=== PATIENT | female | born 1945 | race Caucasian/White ===

== ENCOUNTER → 2022-06-03 13:50 | Outpatient (CLI) | payer MEDICARE, SELFPAY ==
--- NOTE | ~2022-06-03 | MR_ITS ---
EXAMINATION: MR lumbar spine wo/w con DATE: 06/03/2022 14:40 INDICATION: Dorsalgia with low back pain and right leg pain TECHNIQUE: Magnetic resonance imaging (MRI) of the lumbar spine was performed without and with 14 mL Multihance intravenous contrast. Sequences included sagittal T2-weighted FSE, sagittal T2-weighted FS FSE, and sagittal and axial T1-weighted FSE. Postcontrast sequences included axial T2-weighted FSE, sagittal T1-weighted FSE, and axial and sagittal T1-weighted FS FSE. COMPARISON: None FINDINGS: Subtle degree lumbar dextroscoliosis. Sagittal alignment is normal. Vertebral body heights are normal . There is marrow edema and enhancement underlying the the right posterior aspect of the superior end plate of L2 which could represent a developing compression fracture or Schmorl's node. Severe disc he ight loss with fibrofatty degenerative endplate changes at L4-L5. Moderate disc height loss at L1-L2 and L3-L4. Mild disc height loss at L2-L3. Marrow signal is otherwise unremarkable. The conus medulla ris terminates at L1-L2. There is normal signal in the caudal spinal cord. Postoperative change of pr ior right hemilaminotomies at L4-L5 and L5-S1. 6 mm T2 hyperintense nonenhancing right renal cyst. Pa ravertebral soft tissues are otherwise unremarkable. Paravertebral soft tissues are unremarkable. The following disc levels are specifically discussed: T12-L1: Minimal central disc protrusion. There is mild bilateral facet joint osteoarthritis. There is no neural foraminal stenosis. There is no central canal stenosis. L1-L2: Disc is bulging with superimposed annular fissure and small central to right paracentral disc extrusion versus sequestered disc fragment with disc material extending 7 mm cephalad to the level of the inferior endplate of L1. There is mild left and mild to moderate right facet joint osteoarthriti s. There is moderate right and mild to moderate left neural foraminal stenosis. There is mild central canal stenosis. L2-L3: Disc is bulging with annular fissure. There is mild left and mild to moderate right facet join t osteoarthritis. There is hypertrophy of the ligamentum flavum. There is mild bilateral neural warren inal stenosis. There is severe central canal stenosis with no CSF signal surrounding the centrally cl ustered nerve roots. L3-L4: Disc is bulging with superimposed annular fissure and small central disc extrusion with disc m aterial extending up to 6 mm cephalad to the level of the inferior endplate of L3. There is severe bi lateral facet joint osteoarthritis. There is mild to moderate right and moderate left neural foramina l stenosis. There is mild to moderate central canal stenosis. L4-L5: Disc is bulging with annular fissure. There is hypertrophy of the ligamentum flavum with right -sided hemilaminotomy and ligamentum flavum resection. There is moderate to severe bilateral facet nahid int osteoarthritis. There is mild to moderate bilateral neural foraminal stenosis. There is mild cent ral canal stenosis. L5-S1: Disc is minimally bulging. There is hypertrophy of the left ligamentum flavum with right-sided hemilaminotomy and resection of the right ligamentum flavum. There is some epidural lipomatosis. The re is severe right and moderate to severe left facet joint osteoarthritis. There is mild bilateral ne ural foraminal stenosis. There is mild central canal stenosis. IMPRESSION: 1. Severe lumbar spondylosis most notable for severe central canal stenosis at L2-L3. 2. Right-sided hemilaminotomies at L4-L5 and L5-S1. Reviewed, dictated and finalized at location B.
== END ==
PROVIDERS: PCP Family Medicine; Visit Provider Neurological Surgery
DX: M47.816 Spondylosis without myelopathy or radiculopathy, lumbar region (principal); M48.061 Spinal stenosis, lumbar region without neurogenic claudication; M96.1 Postlaminectomy syndrome, not elsewhere classified
CPT/HCPCS: 72158; A9577

== ENCOUNTER 2022-07-30 10:13 | Outpatient (CLI) | payer MEDICARE, SELFPAY ==
--- NOTE | 2022-07-30 10:25 | ECG_ITS ---
Measurements Intervals [place] Rate: 60 P: 50 CO: 145 QRS: -14 QRSD: 87 T: 59 QT: 381 QTc: 383 Interpretive Statements SINUS RHYTHM DELAYED PRECORDIAL R/S TRANSITION LOW QRS VOLTAGE IN PRECORDIAL LEADS VOLTAGE CRITERIA FOR LVH MINIMAL Q WAVES- HIGH LATERAL LEADS BASELINE ARTIFACT- II, III, AVF BORDERLINE ECG NO PREVIOUS ECG AVAILABLE FOR COMPARISON Electronically Signed On 07-30-2022 11:20:25 CDT by Ovi Stock D.O.
[2022-07-30 10:46] LABS: Hematocrit 42.9 % (37.0-47.0); Hemoglobin 13.7 g/dL (12.0-15.0)
== END 2022-07-30 10:14 | disposition home or self-care (01) ==
LOC: ANHSURGERY 10:17
PROVIDERS: Anesthesiology; PCP Family Medicine; Visit Provider Neurological Surgery
DX: Z01.818 Encounter for other preprocedural examination (principal); M48.062 Spinal stenosis, lumbar region with neurogenic claudication
CPT/HCPCS: 36415; 85014; 85018; 86850; 86900; 86901; 93005

== ENCOUNTER 2022-08-04 00:02 | Day surgery (SDC) | payer MEDICARE, SELFPAY ==
--- NOTE | 2022-07-27 11:04 | PC.NURSE ---
Report to the Outpatient Waiting Room, entrance under the green pavilion located off [facility], at time ___1100____ on date __08/04/22 . Planned Procedure Time: __1300 . Time changes happen often and if your time is changed the preop area will call you the afternoon before. - You and your visitor will be asked to self-screen and do not enter if you have any COVID symptoms. - A mask is optional within the hospital at this time. Patients may have clear liquids (water, carbonated beverages, clear teas, apple juice) until 3 hours prior to surgery with a maximum of 20 ounces. - No food from midnight until time of surgery - Infants may have breast milk until 4 hours before surgery, infant formula 6 hours prior to surgery. - Children will be allowed to drink immediately following surgery. If applicable, please bring a bottle or sippy cup to assist with drinking. Juice, water, soda, and popsicles are readily available. For infants on formula, please bring formula the day of surgery. Pacifiers are allowed. Take the following medications with a SIP of water the morning of surgery: VENLAFAXINE DO NOT STOP ANY OF YOUR OTHER PRESCRIPTION MEDICATIONS PRIOR TO SURGERY ?EXCEPT THE FOLLOWING Medications to discontinue per physician ___PT STATES HOLD NAPROXEN AND ALL VITAMINS AND SUPPLEMENTS 7 DAYS PRE OP PER DR DIXON Date to take last dose____07/27/22 Please no make-up, nail moldovan, hairspray, perfume, deodorant, or body powder the day of surgery. No jewelry (including any body piercings) or valuables the day of surgery, leave them at home. Please take a shower or bath the night before, or the morning of, surgery with an antibacterial soap. Wear comfortable, loose fitting clothing. Children are encouraged to wear pajamas. - Jewelry must be removed prior to entering the operating room. Rings and piercings that are not removed may be cut off. - The hospital will not accept responsibility for valuables. - Please leave all valuables, including medications, at home the day of surgery. If you are going home after surgery, a licensed compressed air pile driver operator must drive you home. - NO public transportation without another adult if you receive anesthesia. - We recommend that an adult stay with you for 24 hours following discharge. - We also recommend that you do not drive, make important decision, drink alcoholic beverages, or take any drugs that were not prescribed by your health care provider for at least 24 hours after your discharge time. For Pediatric surgeries, we recommend two adults accompany the child home. Follow any additional instructions given to you from your surgeon. If you or anyone in your household have experienced Covid symptoms in the past week, please notify your surgeon or the nurse liaison at the phone number below for possible testing. Telephone instructions given to __PATIENT and asked if any additional questions and then verbalized understanding. Patient advised to call surgeon office or pre surgery nurse liaison [phone] if any additional questions.
[2022-07-27 11:12] VITALS: BMI 30.7
--- NOTE | 2022-08-03 10:00 | WPDANESEPPF ---
Anes - Initial Pre Proc Eval Procedure: Operation Date: 08/04/22 10:30 Proposed Procedures p L2-3 Lumbar Laminectomy - Frankie Mcadams MD Date/Time: 08/03/22 10:00 Surgeon: Frankie Mcadams MD Pre Op Diagnosis: lumbar stenosis Patient Data Age: 76 Gender: F Height: 1.6 m Weight: 78.5 kg Allergies Allergy/AdvReac Type Severity Reaction Status Date / Time oxycodone AdvReac Hallucinati Verified 08/04/22 08:05 ng Home Medications Medication Instructions Recorded Confirmed Type ascorbic acid (vitamin C) 1,000 mg 1 g PO DAILY 07/27/22 08/04/22 History tablet jkrdnse-cayqpfmaf-ifzp tablet 1 tablet PO DAILY 07/27/22 08/04/22 History cholecalciferol (vitamin D3) 50 50 mcg PO DAILY 07/27/22 08/04/22 History mcg (2,000 unit) capsule ibandronate 150 mg tablet 150 mg PO MONTHLY 07/27/22 08/04/22 History krill 1 cap PO DAILY 07/27/22 08/04/22 History ijp-go4-ppt-rbs-hu4-fdg-astax 1,500 mg-165 mg-67.5 mg capsule (Krill Oil ([place] 3 and 6)) naproxen 500 mg tablet 500 mg PO PRN PRN Pain 07/27/22 08/04/22 History pantoprazole 40 mg tablet,delayed 40 mg PO DAILY 07/27/22 08/04/22 History release pravastatin 80 mg tablet 80 mg PO HS 07/27/22 08/04/22 History venlafaxine 50 mg tablet 50 mg PO BID 07/27/22 08/04/22 History ECG: Date of Service: 07/30/22 Procedure(s): CA 12 lead EKG Accession Number(s): [id number] cc: ~ ? Measurements Intervals? [place]? Rate: ? 60 ? P:? 50 NC: ? 145? QRS:? -14 QRSD: ? 87 ? T:? 59 QT: ? 381? QTc:? 383? Interpretive Statements SINUS RHYTHM DELAYED PRECORDIAL R/S TRANSITION LOW QRS VOLTAGE IN PRECORDIAL LEADS VOLTAGE CRITERIA FOR LVH MINIMAL Q WAVES- HIGH LATERAL LEADS BASELINE ARTIFACT- II, III, AVF BORDERLINE ECG NO PREVIOUS ECG AVAILABLE FOR COMPARISON Electronically Signed On 07-30-2022 11:20:25 CDT by Ovi Stock D.O. Patient hx anesthesia problems: none Family hx anesthesia problems: none Results Review: All pre-operative results and documents have been reviewed as part of the pre-operative evaluation. [facility] Past Medical History Medical History (Updated 08/03/22 @ 13:36 by Nav Ratliff MD) Anxiety Back pain Depression Diverticulitis Hyperlipidemia Lumbar stenosis with neurogenic claudication Obesity SCARLET on CPAP Osteoarthritis Social History Social History Smoking packs per day: 1.5 Smoking cigarettes per day: 30.0 Years smoked: 15 Smoking pack-years: 22.50 Smoking status: Former smoker Tobacco type: cigarettes Smoking end date: 03/22/79 Living arrangements: with family Spiritual care concerns: No Anes - Eval Final PreProcedure Day of Procedure 08/03/22 10:00 Patient weight: obese Heart: regular rate and rhythm Lungs: clear to auscultation and normal air movement Airway: Mallampati scale class II Neurological: alert and oriented Last oral intake: >/= 8 hours ASA classification: III Emergent: no Anesthetic plan: proceed Anesthesia type and monitoring: general ETT Results Review: All pre-operative results and documents have been reviewed as part of the pre-operative evaluation. Informed Consent: The patient's anesthetic plan and its attendant risks and benefits were discussed with the patient/family/POA. Questions were solicited and answers provided to the satisfaction of the patient/family/POA.
[2022-08-04] VITALS (14 sets, daily range): BP systolic 112–182; BP diastolic 50–74; PULSE 62–85; RESP 10–20; TEMP 36.1–36.9; O2SAT 88–100
--- NOTE | ~2022-08-04 | XR_ITS ---
XR fluoroscopy no charge Procedure: Lumbar laminectomy TECHNIQUE: Fluoroscopy used during lumbar laminectomy procedure performed by [Frankie Mcadams MD] on 08/04/2022. 2 seconds of fluoroscopy with 2 images captured. FINDINGS: Correlate with procedure note. IMPRESSION: Fluoroscopy used during lumbar laminectomy procedure. Please refer to procedural report. Reviewed, dictated and finalized at location L.
[2022-08-04] MEDS: LACTATED RINGERS 1,000 ML 30 ML IV CONT ×2 (09:28→12:13)
--- NOTE | 2022-08-04 10:29 | PM.IMHP ---
H&P: HPI History of Present Illness Date/Time: 08/04/22 10:29 Chief Complaint: Back and leg pain neurogenic claudication Narrative: Adilene is a 76-year-old female with back and leg pain related to stenosis at L2-3 that is causing claudication presents now for decompression. This will be an L2-3 laminectomy. She has not changed appreciably since we last saw her. She does not have specific muscle group weakness or dermatomal numbness. She is not having new bowel or bladder difficulty. Review of Systems Review of Systems: Patient denies shortness of breath, cough, fever, chills, nausea, vomiting, weight loss, weight gain, chest pain, dysuria. She has back and leg pain as above. Review of systems otherwise negative on 12 systems except as noted elsewhere. [facility] Past Medical History Medical History (Updated 08/03/22 @ 13:36 by Nav Ratliff MD) Anxiety Back pain Depression Diverticulitis Hyperlipidemia Lumbar stenosis with neurogenic claudication Obesity SCARLET on CPAP Osteoarthritis Social History Social History Smoking packs per day: 1.5 Smoking cigarettes per day: 30.0 Years smoked: 15 Smoking pack-years: 22.50 Smoking status: Former smoker Tobacco type: cigarettes Smoking end date: 03/22/79 Living arrangements: with family Spiritual care concerns: No Meds Home Medications and Allergies Home Medications Medication Instructions Recorded Confirmed Type ascorbic acid (vitamin C) 1,000 mg 1 g PO DAILY 07/27/22 08/04/22 History tablet rfybybd-xdvumccjf-huyf tablet 1 tablet PO DAILY 07/27/22 08/04/22 History cholecalciferol (vitamin D3) 50 50 mcg PO DAILY 07/27/22 08/04/22 History mcg (2,000 unit) capsule ibandronate 150 mg tablet 150 mg PO MONTHLY 07/27/22 08/04/22 History krill 1 cap PO DAILY 07/27/22 08/04/22 History ntx-xk1-fxz-atc-ap5-ads-astax 1,500 mg-165 mg-67.5 mg capsule (Krill Oil ([place] 3 and 6)) naproxen 500 mg tablet 500 mg PO PRN PRN Pain 07/27/22 08/04/22 History pantoprazole 40 mg tablet,delayed 40 mg PO DAILY 07/27/22 08/04/22 History release pravastatin 80 mg tablet 80 mg PO HS 07/27/22 08/04/22 History venlafaxine 50 mg tablet 50 mg PO BID 07/27/22 08/04/22 History Allergies Allergy/AdvReac Type Severity Reaction Status Date / Time oxycodone AdvReac Hallucinati Verified 08/04/22 08:05 ng Vital Signs Vital Signs - 24 hr 08/04/22 09:14 Temperature 97.5 F L Pulse Rate 62 Respiratory Rate 16 Blood Pressure 134/58 L Pulse Oximetry 100 Oxygen Delivery Room Air Exam Narrative: Strength is 5/5 in all muscle groups of the bilateral lower extremities. Sensation is intact to light touch throughout the lower extremities. Breathing some labored Regular in rhythm Assessment and Plan Assessment and plan (1) Lumbar stenosis with neurogenic claudication: Code(s): M48.062 - Spinal stenosis, lumbar region with neurogenic claudication Status: Acute Plan Adilene is a 68-year-old female with neurogenic claudication secondary to spinal stenosis at L2-3 presents for laminectomy. I described to her again that operation, its risks, potential benefits, the operative postoperative course in detail and answered all her questions personally. She indicates an understanding and elects to proceed with that operation.
--- NOTE | 2022-08-04 10:31 | WPDHPUPDATE1 ---
History and Physical Update Update Date/Time: 08/04/22 10:31 History and Physical has been reviewed, including an updated exam of the patient. There are NO changes in the patient's condition. Risks, benefits, and alternatives have been discussed and questions answered. Patient agrees to proceed with procedure.
[2022-08-04] MEDS: ceFAZolin 2 GM/D5W 50 ML 2 GM/50 ML BAG IVPB (10:47)
[2022-08-04] MEDS: LIDO 1%/EPINEPHRINE 1:100,000 50 ML VIAL 10 ML INFILTRATE (11:29)
[2022-08-04] MEDS: fentaNYL CITRATE INJ (*CRX) 100 MCG/2 ML VIAL 25 MCG IV PUSH ×5 (12:46→13:22)
--- NOTE | 2022-08-04 13:50 | SUR.PHASEI ---
1345 PT MEETS ANESTHESIA DISCHARGE CRITERIA. NO POST OP ROOM AVAILABLE ON THE FLOORS. ON HOLD. SPOUSE AWARE.
--- NOTE | 2022-08-04 14:10 | SUR.PHASEI ---
report was faxed to [address] [place] [address]. rn called back. report given and pt transported up to unit. vitals stable. pain 05/29.
--- NOTE | 2022-08-04 14:35 | ADMGEN ---
This patient, Adilene Heart, was admitted to 2 Medical Room 255-. Patient/family oriented to hospital policies and general routines including ID bracelet, bed and alarms, visiting hours, pain management, procedures, bathroom and other care routines, personal items, smoking policy, room service/diet, and visiting hours. Information on how to activate the Rapid Response Team has been discussed. Patient/Family are encouraged to report perceived risks to care and to ask questions if they do not understand what they are told or what they should do.
[2022-08-04] MEDS: VENLAFAXINE HCL 25 MG TABLET 50 MG PO (16:56)
[2022-08-04] MEDS: HYDROcodone/acetaminophen (*CRX) 5-325 MG TABLET 1 TAB PO (16:57)
[2022-08-04] MEDS: PRAVASTATIN SODIUM 20 MG TABLET 80 MG PO (21:21)
[2022-08-04] MEDS: DOCUSATE SODIUM 100 MG CAPSULE PO (21:21)
[2022-08-05 01:43] VITALS: BP 128/55; PULSE 68; RESP 16; TEMP 36.2; O2SAT 94
[2022-08-05] MEDS: HYDROcodone/acetaminophen (*CRX) 10-325 MG TABLET 1 TAB PO (02:30)
[2022-08-05 05:45] VITALS: BP 127/44; PULSE 70; RESP 20; TEMP 36.3; O2SAT 98
[2022-08-05] MEDS: ASCORBIC ACID 500 MG TABLET 1000 MG PO (08:17)
[2022-08-05] MEDS: VENLAFAXINE HCL 25 MG TABLET 50 MG PO (08:17)
[2022-08-05] MEDS: DOCUSATE SODIUM 100 MG CAPSULE PO (08:17)
[2022-08-05] MEDS: PANTOPRAZOLE 40 MG TABLET PO (08:17)
[2022-08-05] MEDS: CHOLECALCIFEROL 1,000 UNITS TABLET 2000 UNITS PO (08:17)
[2022-08-05 10:20] VITALS: BP 140/60; PULSE 63; RESP 18; TEMP 37.1; O2SAT 99
--- NOTE | 2022-08-05 14:24 | WPDANESPN ---
Anes - Prog Note Post-Op Date/Time: 08/05/22 14:24 Cardiovascular status: normal Respiratory status: normal Airway patency: baseline Mental status: baseline Post-Op hydration status: normal Vital Signs: Last Vital Signs Temp 98.8 F 08/05/22 10:20 Pulse 63 08/05/22 10:20 Resp 18 08/05/22 10:20 BP 140/60 08/05/22 10:20 Pulse Ox 99 08/05/22 10:20 O2 Del Method Room Air 08/05/22 08:00 O2 Flow Rate 2 08/04/22 13:40 Pain Score (VAS): 0/10 I/O: Intake & Output 08/04/22 08/05/22 08/05/22 23:59 07:59 15:59 Intake Total 550 720 Output Total 30 Balance 550 -30 720 Post-procedural complaints: none Patient Feedback: Patient satisfied with anesthetic care.
--- NOTE | 2022-08-13 07:36 | P.OP_ITS ---
Procedure Note - Detailed Date of Procedure 08/13/22 Pre-op Diagnosis lumbar stenosis Post-op Diagnosis Same Procedure Performed L2-3 laminectomy Surgeon Frankie Mcadams MD Anesthesia General Description of Procedure The patient was brought to the operating room in the supine position, was sedated, intubated and placed under general anesthesia in routine fashion. She was then turned to the prone position on a Landry frame. The of operation on her back was examined, marked for incision, prepped and draped in routine sterile fashion. Incision was marked over the L2 and L3 spinous processes in the midline. This area was injected with 0.5% lidocaine with [id number] epinephrine. Intravenous antibiotics given prior to incision. Incision was made with a 10 blade scalpel down to the lumbodorsal fascia. A subperiosteal dissection of the muscle soft tissue away from spinous process lamina at L2-3 was performed with a subperiosteal elevator and Bovie cautery. Verifying x-rays obtained to verify the level of operation. Spinous processes at L2 and L3 were removed with a Addis rongeur. A Midas Oswaldo drill with an [place] bit was used to thin the lamina in the midline until the soft contents of the canal were encountered. The yellow ligament was lifted removed piecemeal using Kerrison punches in the midline. In the lateral recess a curved curette was used to define a plane with dura and Kerrison punches were used to remove additional bone ligament flush with the pedicles. This was done from superior to inferior bilaterally. This maneuver was performed until a dental instrument could be placed in the lateral epidural space to confirm microdecompression. The wound was then copiously irrigated with bacitracin irrigation all bleeding stopped with bipolar and Bovie cautery and Gelfoam thrombin powder. The wound was then closed in layered fashion with 2-0 Vicryl interrupted sutures in the lumbodorsal fascia and Kia's layer. 3-0 Vicryl buried interrupted sutures were placed in the dermis and the skin was closed with a running 4-0 Monocryl subcuticular stitch and dressed with Dermabond. A medium Hemovac drain and left in the subfascial position buried out the inferior right of the incision before closure. The patient was allowed wake up in the operating room and was taken to the recovery room in stable condition. There were no immediate complications of this operation all counts correct in the case. Blood loss was 100 cc. The patient was neurologically at her baseline postoperatively. CPT codes: 99728, 33541 Estimated Blood Loss 100 IV Fluids 1,000 Drains Yes Complications None Condition Stable Disposition PACU [facility] Billing Surgery - Charge Forward: Surgery Billing
== END 2022-08-05 14:00 | disposition home or self-care (01) ==
LOC: ANHSURGERY 07:54 → ANH2MED 14:19
PROVIDERS: PCP Family Medicine; Visit Provider Neurological Surgery
PROC: (CPT 63005; principal; 2022-08-04 10:30)
DX: M48.062 Spinal stenosis, lumbar region with neurogenic claudication (principal); E78.5 Hyperlipidemia, unspecified; F41.9 Anxiety disorder, unspecified; F32.A Depression, unspecified; G47.33 Obstructive sleep apnea (adult) (pediatric); E66.9 Obesity, unspecified; Z68.30 Body mass index [BMI] 30.0-30.9, adult; Z87.891 Personal history of nicotine dependence
CPT/HCPCS: 63047; 36415; 85014; 85018; 86850; 86900; 86901; 93005; 97161; 97165; 97530; 99199; A9270; J0330; J0690; J1100; J2405; J2704; J2710; J3010; J7120